=== PATIENT | male | born 1955 | race Caucasian/White ===

== ENCOUNTER → 2024-01-30 09:41 | Outpatient (REF) | payer MEDICARE, OTHER, SELFPAY | LOC: MRI 3T 09:41 | PROVIDERS: ATTENDING PHYSICIAN Specialist; FAMILY PHYSICIAN Nurse Practitioner Adult Health | DX: N42.1 Congestion and hemorrhage of prostate (principal); N42.31 Prostatic intraepithelial neoplasia | CPT/HCPCS: 72197; A9575 ==

== ENCOUNTER → 2024-03-24 07:48 | Outpatient (REF) | payer MEDICARE, OTHER, SELFPAY | LOC: RAD 07:48 | PROVIDERS: ATTENDING PHYSICIAN Specialist; FAMILY PHYSICIAN Nurse Practitioner Adult Health | DX: D49.512 Neoplasm of unspecified behavior of left kidney (principal) | CPT/HCPCS: 74178; Q9967 ==

== ENCOUNTER → 2025-03-10 09:06 | Outpatient (REF) | payer MEDICARE, OTHER, SELFPAY | LOC: RAD 09:06 | PROVIDERS: ATTENDING PHYSICIAN Specialist | DX: D49.512 Neoplasm of unspecified behavior of left kidney (principal) | CPT/HCPCS: 74178; Q9967 ==